=== PATIENT | female | born 1945 | race Caucasian/White ===

== ENCOUNTER 2017-01-02 09:58 | Day surgery (SDC) | payer OTHER ==
[~2017-01-02] VITALS: Ht 160 cm; Wt 77.1 kg
[~2017-01-02 09:58] MED LIST: ANTIVERT25 MG PO; ASPIRIN81 M2 PO; CALCIUM 600 +1 EAC9 PO; LISINOPRIL40 MG PO; PRAVASTATIN SOD40 MG PO
[2017-01-02 10:40] LABS: EOSINOPHIL (%) 1.2 % (0-5); EOSINOPHIL COUNT 0.1 K/uL (0-0.3); HEMATOCRIT 38.1 % (36.0-46.0); MCH 29.2 PG (29.0-34.0); MCHC 32.5 G/DL (30.0-36.0); MCV 89.6 FL (83-99); MONOCYTE COUNT 0.5 K/uL (0-0.8); NEUTROPHIL (%) 55.6 % (45-76); NEUTROPHIL COUNT 3.2 K/uL (1.8-6.4); PLATELET COUNT 90 K/uL (156-360); RBC DIS.WIDTH-CV 13.7 % (11.8-14.6); RBC DIS.WIDTH-SD 44.2 % (39-53); RED BLOOD COUNT 4.25 M/uL (3.80-5.20); WHITE BLOOD COUNT 5.8 K/uL (4.1-10.2)
[2017-01-02 10:42] VITALS: BP 150/69
[2017-01-02 10:48] LABS: CHLORIDE 108 mEq/L (99-109); SODIUM 143 mEq/L (136-147)
[2017-01-02 10:49] LABS: INTER. NORMALIZED RATIO 1.1; PROTHROMBIN TIME 10.7 (9.2-11.2)
[2017-01-02 10:50] LABS: GLUCOSE 86 mg/dL (70-99)
[2017-01-02 10:52] LABS: ANION GAP 8 MEQ/L (2-14); TOTAL BILIRUBIN 0.7 mg/dL (0.0-1.0)
[2017-01-02 10:54] LABS: ALKALINE PHOSPHATASE 63 IU/L (3-129); GFR ESTIMATE (CALCULATED) > 59 mL/min/
[2017-01-02 10:55] LABS: UREA NITROGEN (BUN) 19 mg/dL (9-23)
[2017-01-02 11:00] LABS: MEAN PLAT.VOLUME 10.9 uM^3 (9.5-12.4)
[2017-01-02] MEDS ORDERED: NORCO 5/3251 TABLET PO (14:54)
[2017-01-02] MEDS ORDERED: COLACE100 MG PO (14:54)
[2017-01-02 15:30] VITALS: BP 131/68
[2017-01-02 16:20] VITALS: BP 140/63
[2017-01-04 12:42] LABS: Flow Number of Markers 22 (()); Flow Spec Viability 92 % (()); Flow Specimen Type LYMPH NODE (())
== END 2017-01-02 16:27 | disposition home or self-care (01) ==
LOC: SDC 09:58
PROVIDERS: Thoracic Surgery (Cardiothoracic Vascular Surgery)
PROC: 07B20ZX Excision of Left Neck Lymphatic, Open Approach, Diagnostic (ICD-10-PCS; principal; 2017-01-02)
DX: C85.11 Unspecified B-cell lymphoma, lymph nodes of head, face, and neck (principal); I10 Essential (primary) hypertension; R63.4 Abnormal weight loss; Z85.828 Personal history of other malignant neoplasm of skin; Z79.82 Long term (current) use of aspirin; Z80.7 Family history of other malignant neoplasms of lymphoid, hematopoietic and related tissues; Z82.49 Family history of ischemic heart disease and other diseases of the circulatory system; Z82.3 Family history of stroke; Z80.8 Family history of malignant neoplasm of other organs or systems
CPT/HCPCS: 80053; 85025; 85610; 86850; 86900; 86901; 88184 90; 88185 90; 88189 90; 88305; 93005; J0330; J0690; J1100; J2405; J3010

== ENCOUNTER → 2017-02-08 | Outpatient (CLI) | payer OTHER ==
[~2017-02-08] MED LIST changes: +COLACE100 MG PO; +NORCO 5/3251 TABLET PO
[2017-02-08 10:06] LABS: EOSINOPHIL (%) 1.6 % (0-5); EOSINOPHIL COUNT 0.1 K/uL (0-0.3); HEMATOCRIT 34.8 % (36.0-46.0); IMMATURE GRANULOCYTE (%) 0.5 % (0.0-0.7); INTER. NORMALIZED RATIO 1.1; LYMPHOCYTE COUNT 2.1 K/uL (1.0-2.8); MCH 28.1 PG (29.0-34.0); MCHC 31.9 G/DL (30.0-36.0); MCV 88.1 FL (83-99); MEAN PLAT.VOLUME 10.7 uM^3 (9.5-12.4); MONOCYTE (%) 6.8 % (3-12); MONOCYTE COUNT 0.4 K/uL (0-0.8); NEUTROPHIL (%) 53.7 % (45-76); PLATELET COUNT 77 K/uL (156-360); PROTHROMBIN TIME 10.7 (9.2-11.2); PTT 25.4 (25-32); RBC DIS.WIDTH-CV 13.2 % (11.8-14.6); RED BLOOD COUNT 3.95 M/uL (3.80-5.20); WHITE BLOOD COUNT 5.6 K/uL (4.1-10.2)
[2017-02-08 11:41] LABS: ABS NEUTROPHIL COUNT 2.6; EOSINOPHIL ABS CT 0.2
[2017-02-08 11:42] LABS: PLAT.SUFFICIENCY DECREASED
[2017-02-11 11:43] LABS: Flow Clinical Information NOT PROVIDED (()); Flow Number of Markers 22 (()); Flow Spec Viability 94 % (()); Flow Specimen Type BONE MARROW (())
== END | disposition home or self-care (01) ==
LOC: EDSTATUS 09:00 → OPR 09:00
PROVIDERS: Emergency Medicine; Radiology Diagnostic Radiology
PROC: 07DR3ZX Extraction of Iliac Bone Marrow, Percutaneous Approach, Diagnostic (ICD-10-PCS; principal; 2017-02-08)
DX: C85.90 Non-Hodgkin lymphoma, unspecified, unspecified site (principal); Z79.82 Long term (current) use of aspirin
CPT/HCPCS: 77012; 85007; 85025; 85610; 85730; 85999; 88184 90; 88185 90; 88189 90; J3010